=== PATIENT | male | born 1930 | race Caucasian/White ===

== ENCOUNTER → 2016-09-21 | Outpatient (CLI) | payer OTHER ==
[~2016-09-21] MED LIST: PT WILL BRING LIST
[2016-09-21 10:42] LABS: BLOOD UREA NITROGEN 16 mg/dL (7-18)
[2016-09-21 10:46] LABS: ASPARTATE AMINO TRANSFERASE 10 U/L (15-37)
== END | disposition home or self-care (01) ==
LOC: STAR 09:26
PROVIDERS: ATTEND Urology
DX: Z01.818 Encounter for other preprocedural examination (principal); N40.1 Benign prostatic hyperplasia with lower urinary tract symptoms; N21.0 Calculus in bladder
CPT/HCPCS: 36415; 80053; 93005

== ENCOUNTER 2016-09-29 08:02 | Observation (INO) | payer OTHER ==
[~2016-09-29] VITALS: Ht 177.8 cm; Wt 98.0 kg
[2016-09-29 08:45] VITALS: BP 163/80
[2016-09-29] MEDS ORDERED: LACTATED RINGERS 1,000 ML IV SCH (08:45)
[2016-09-29] MEDS ORDERED: FINA5TAB4 PO (08:50)
[2016-09-29] MEDS ORDERED: VERA360C2 PO (08:50)
[2016-09-29] MEDS ORDERED: SUCCINYLCHOLINE 20 MG/ML, 10ML ONE (10:34)
[2016-09-29] MEDS ORDERED: GLYCOPYRROLATE 0.2MG/1ML ONE (10:34)
[2016-09-29] MEDS ORDERED: PROPOFOL 10 MG/ML, 20ML ONE (10:34)
[2016-09-29] MEDS ORDERED: ONDANSETRON 2MG/ML, 2ML ONE (10:34)
[2016-09-29] MEDS ORDERED: DEXAMETHASONE 4 MG/ML, 1ML ONE (10:34)
[2016-09-29] MEDS ORDERED: NEOSTIGMINE 1 MG/ML, 10ML ONE (10:34)
[2016-09-29] MEDS ORDERED: ROCURONIUM 10 MG/ML ONE (10:34)
[2016-09-29] MEDS ORDERED: CEFAZOLIN 1,000 MG ONE (10:34)
[2016-09-29] MEDS ORDERED: FENTANYL PF 100 MCG/2ML ONE ×4 (10:38→13:36)
[2016-09-29] MEDS ORDERED: FENTANYL PF 100 MCG/2ML IV PRN (11:30)
[2016-09-29] MEDS ORDERED: hydrALAzine 20 MG/ML, 1ML IV PRN (11:30)
[2016-09-29] MEDS ORDERED: METOPROLOL 1 MG/ML, 5ML IV PRN (11:30)
[2016-09-29] MEDS ORDERED: HYDROmorphone 1 MG/ML, 1ML IV PRN (11:30)
[2016-09-29] MEDS ORDERED: ONDANSETRON 2MG/ML, 2ML IVPush PRN (11:30)
[2016-09-29] MEDS ORDERED: OXYcodone 5 MG/5 ML ORAL.SOL UDC PO PRN (11:30)
[2016-09-29] MEDS ORDERED: ACETAMINOPHEN 325 MG TABLET PO PRN (11:30)
[2016-09-29] MEDS ORDERED: ALBUTEROL SULFATE 2.5 MG/3 ML NPPB PRN (11:30)
[2016-09-29] MEDS ORDERED: FENTANYL PF 250 MCG/5ML ONE (12:12)
[2016-09-29] MEDS ORDERED: ACETAMINOPHEN 325 MG TABLET ONE (13:36)
[2016-09-29] MEDS ORDERED: ACETAMINOPHEN 650 MG/20.3 ML UDC ONE (13:36)
[2016-09-29] MEDS ORDERED: OXYcodone 5 MG/5 ML ORAL.SOL UDC ONE (13:36)
[2016-09-29] MEDS: FENTANYL PF 100 MCG/2ML IV PRN ×2 (14:12→14:18)
[2016-09-29 14:47] VITALS: BP 160/74
[2016-09-29 15:18] LABS: HEMOGLOBIN 12.4 g/dL (13.7-18.0)
[2016-09-29 15:30] LABS: BLOOD UREA NITROGEN 15 mg/dL (7-18)
[2016-09-29] MEDS ORDERED: morphine SULFATE 10 MG/ML, 1ML IV PRN (15:30)
[2016-09-29] MEDS ORDERED: OPIUM/BELLADONNA SUPP.RECT 16.2-30 MG PR PRN (15:30)
[2016-09-29] MEDS ORDERED: ONDANSETRON 2MG/ML, 2ML IV PRN (15:30)
[2016-09-29] MEDS ORDERED: HYDROcodone/APAP 5/325 TABLET PO PRN (16:00)
[2016-09-29] MEDS: D5%-0.9% NACL+KCL 20MEQ 1,000 ML IV SCH (16:17)
[2016-09-29] MEDS: CEFAZOLIN PMX 1GM/50ML 50 ML IV SCH (18:07)
[2016-09-29] MEDS ORDERED: FINASTERIDE 5 MG TABLET PO SCH (21:00)
[2016-09-29] MEDS ORDERED: VERAPAMIL ER 180MG TABLET.ER PO SCH (21:00)
[2016-09-29 21:20] VITALS: BP 170/82
[2016-09-29] MEDS: DOCUSATE 100 MG CAPSULE PO SCH (21:52)
[2016-09-29 23:45] VITALS: BP_SYST 152; BP_SYST 99; BP_DIAS 65; BP_DIAS 79
[2016-09-30] MEDS: CEFAZOLIN PMX 1GM/50ML 50 ML IV SCH ×2 (02:12→10:18)
[2016-09-30 03:24] VITALS: BP 163/72
[2016-09-30 05:59] LABS: HEMOGLOBIN 11.1 g/dL (13.7-18.0)
[2016-09-30 06:10] LABS: BLOOD UREA NITROGEN 15 mg/dL (7-18)
[2016-09-30] MEDS: DOCUSATE 100 MG CAPSULE PO SCH (10:16)
[2016-09-30] MEDS: D5%-0.9% NACL+KCL 20MEQ 1,000 ML IV SCH (11:30)
[2016-09-30 13:23] VITALS: BP 160/56
[2016-09-30] MEDS ORDERED: HYDR-3240 PO (14:32)
[2016-09-30] MEDS ORDERED: CEFTIN PO (14:33)
== END 2016-09-30 14:50 | disposition home or self-care (01) ==
LOC: OUT 08:02 → 4NOR 14:43 → OUT 23:24 → 4NOR 23:24 → DCLOUNGE 09-30 14:29
PROVIDERS: ADMIT Urology; ATTEND Urology
DX: N40.1 Benign prostatic hyperplasia with lower urinary tract symptoms (principal); R33.8 Other retention of urine; N21.0 Calculus in bladder; I10 Essential (primary) hypertension; D64.9 Anemia, unspecified; Z90.49 Acquired absence of other specified parts of digestive tract; Z98.890 Other specified postprocedural states
CPT/HCPCS: 36415; 52318; 52630; 80048; 81001; 82040; 82360; 85014; 85018; 87077; 87086; 87186; 88300; 88305; 96365; 96375; 96376; G0378; J0330; J0690; J1100; J2405; J2704; J2710; J3010; J3480; J7120; J3490